=== PATIENT | male | born 1945 | race Caucasian/White ===

== ENCOUNTER 2018-10-25 21:37 | Inpatient (IN) | payer MEDICARE ==
[~2018-10-25] VITALS: Ht 177.8 cm; Wt 112.0 kg
[~2018-10-25 21:37] MED LIST: ALDACTONE25 MG PO; AMARYL1 MG PO; ANTIBIOTIC OTIC; ASPIRIN81 M2 PO; CLARITIN10 MG PO; CRESTOR20 MG PO; EFFIENT10 MG PO; FENOFIBRATE160 MG PO; FISH OIL 1,0001 EAC5 PO; GLUCOPHAGE500 MG PO; LEVEMIR SUBQ; LISINOPRIL10 MG PO; NOHOMEMEDICATIONS; NORCO 5-325 TA1 EACH PO; NOVOLOG MI100 UNIT/2 SUBQ; PLAVIX 75 MG TA75 M1 PO; PREDNISONE 20 M20 MG PO; PROVENTIL HFA6.7 G1 INH; STEROID OTIC; TOPROL XL25 MG PO; ZPAK PO
[2018-10-25 21:38] VITALS: BP 174/79
[2018-10-25 22:07] LABS: ABSOLUTE BASOPHILS 0.1 thou/uL (0.0-0.2); ABSOLUTE EOSINOPHILS 0.1 thou/uL (0.0-0.7); ABSOLUTE LYMPHOCYTES 2.2 thou/uL (0.8-5.3); ABSOLUTE MONOCYTES 0.6 thou/uL (0.0-1.2); ABSOLUTE NEUTROPHILS 2.9 thou/uL (1.6-8.1); BASOPHILS 0.9 %; EOSINOPHILS 1.3 %; HEMATOCRIT 41.2 % (42.0-52.0); HEMOGLOBIN 13.9 gm/dL (14.0-18.0); LYMPHOCYTES 37.4 %; MCH 30.5 pg (26.0-34.0); MCHC 33.8 g/dL (28.0-37.0); MCV 90.4 fL (80.0-100.0); MPV 9.3 fl. (7.2-11.1); NUCLEATED RBCS 0 /100WBC; PLATELET COUNT* 177 thou/uL (150-400); POLYS 49.4 %; RBC 4.56 mil/uL (4.50-6.00); RDW-CV 13.1 % (10.5-14.5); WBC 5.9 thou/uL (4.0-11.0)
[2018-10-25 22:18] LABS: INR 1.1; PROTIME 11.4 Seconds (9.20-11.50)
[2018-10-25 22:25] LABS: LIPASE 511 U/L (73-393); NT-PRO BRAIN NAT PEPTIDE 185 pg/mL (<300); TROPONIN-I LEVEL <0.06 ng/mL (<0.06)
[2018-10-25 23:46] LABS: URINE BILIRUBIN NEGATIVE (Negative); URINE BLOOD TRACE (Negative); URINE CLARITY CLEAR; URINE COLOR YELLOW; URINE GLUCOSE-RANDOM 3+ (Negative); URINE KETONES TRACE (Negative); URINE LEUKOCYTES-REFLEX NEGATIVE (Negative); URINE NITRITE-REFLEX NEGATIVE (Negative); URINE PROTEIN 2+ (Negative); URINE UROBILINOGEN 0.2 E.U./dl (0.2-1.0)
[2018-10-26 00:14] LABS: SQUAMOUS 0-3 Few /LPF (0-3)
[2018-10-26 00:15] LABS: CASTS None Seen /LPF (None Seen); URINE WBC-REFLEX 0-5 Rare /HPF (0-5)
[2018-10-26 00:16] LABS: BACTERIA-REFLEX 1-9 Few /HPF (None Seen); CRYSTALS None Seen /LPF (None Seen); URINE RBC 0-2 Rare /HPF (0-2)
[2018-10-26 02:31] LABS: ALBUMIN 3.2 g/dL (3.4-5.0); CALCIUM 8.3 mg/dL (8.5-10.1); CREATININE 1.2 mg/dL (0.6-1.3); POTASSIUM 4.4 mmol/L (3.5-5.1); TOTAL BILIRUBIN 0.2 mg/dL (<0.1-1.0); TOTAL PROTEIN 6.3 g/dL (6.4-8.2)
[2018-10-26 04:36] VITALS: BP 155/84
[2018-10-26 05:01] VITALS: BP 184/74
--- NOTE | 2018-10-26 06:07 | NUR ---
ADMITTED TO ICU BED 1 AT 0445, SEE ASSESSMENTS. PT WHEEZING, AUDIBLE FROM BEDSIDE. DENIES SOA BUT STATES HE USUALLY USES AN ALBUTEROL INHALER AT HOME FOR WHEEZING AND HAS NEEDED IT DAILY FOR THE LAST 1-2 MONTHS. EXPIRATORY WHEEZES HEAR ON AUSCULTATION. BIGIMENAL PVC'S ON MONITOR. SPECKLED RASH ON DORSAL LEFT FOOT, PT STATES IT HAS BEEN PRESENT X 20 YEARS AND "NO DOCTOR CAN FIGURE IT OUT. THEY HAD ME USE EVERY CREAM OUT THERE, NOTHING HELPED." [facility] PROTOCOL ORDERED, CURRENT SCORE ZERO. ORIENTED TO ROOM/CALL LIGHT WHICH IS WITHIN REACH.
[2018-10-26 06:09] LABS: PROTIME 10.7 Seconds (9.20-11.50)
[2018-10-26 06:10] LABS: PHOSPHORUS* 3.2 mg/dL (2.5-4.9)
[2018-10-26 08:00] VITALS: BP 162/63
--- NOTE | 2018-10-26 08:56 | NUR ---
ASSUMED CARE OF PATIENT. SEE DOCUMENTED ASSESSMENT AND CIWA CHARTING. PATIENT IS TELE STATUS IN THE ICU AND IS A FALL RISK. LESS BIGEMINY PVC'S
--- NOTE | 2018-10-26 10:35 | EKG ---
[place] [address] ELECTROCARDIOGRAM REPORT Name: WILLIAMS LEVINE Room: [address] ADM IN M.R.#: [id number] Admission: 10/26/18 Attend Phys: Nati Trinh MD Discharge: Date of : 45 Report #: [id number] THIS REPORT FOR: //name// [facility] ED Test Date: 2018-10-25 Test Time: 21:53:50 Pat Name: WILLIAMS LEVINE Department: Room: [facility] Gender: M Endoscopy Support Specialist: ELOINA : 1945 Requested By: Radha Tello Order Number: [id number] MD: Brayan Almazan Measurements Intervals [place] Rate: 77 P: 58 VT: 186 QRS: -72 QRSD: 169 T: 64 QT: 436 QTc: 494 Interpretive Statements Sinus rhythm Atrial premature complex Right bundle branch block inferior scar Baseline wander in lead(s) V1 Compared to ECG 01/12/2012 08:17:39 No significant change Electronically Signed On 10-26-2018 10:35:42 CDT by Brayan Almazan [email or web address] <ELECTRONICALLY SIGNED> By: Brayan Almazan MD, [facility] 10/26/18 1035 2153 2153 Brayan Almazan MD, [facility] /EPI
--- NOTE | 2018-10-26 10:48 | NUR ---
1015 DR SCHMIDT TO SEE PATIENT. CARDIOLOGY NOTIFIED OF CONSULT. STILL HAVING SOME PVC'S
[2018-10-26 10:55] LABS: CHOLESTEROL 250 mg/dL (<200); HDL CHOLESTEROL 44 mg/dL (>40); TC:HDL 5.7 Ratio (Not establshd); TRIGLYCERIDE 419 mg/dL (<150); VLDL 84 mg/dL (<40)
[2018-10-26 11:27] LABS: LDL CHOLESTEROL ND mg/dL (<100); SERUM ASSESSMENT Clear
[2018-10-26 12:00] VITALS: BP 171/82
--- NOTE | 2018-10-26 15:59 | NUR ---
PATIENT TO MOVE TO ROOM 213. REPORT CALLED TO SILVESTRE BANG
[2018-10-26 16:00] VITALS: BP 145/68
--- NOTE | 2018-10-26 16:01 | 2DMMODE ---
[place] [address] 2 D/M-MODE ECHOCARDIOGRAM Name: WILLIAMS LEVINE Room: [address] IN [facility]#: [id number] Admission: 10/26/18 Attend Phys: Nati Trinh, Discharge: Date of : 45 Date of Service: 10/26/18 1600 Report #: [id number] THIS REPORT FOR: //name// APPROVED REPORT Study performed: 10/26/2018 14:03:42 EXAM: Comprehensive 2D, Doppler, and color-flow Echocardiogram Patient Location: In-Patient Room #: [facility] Status: routine BSA: 2.26 HR: 69 bpm BP: 171/82 mmHg Rhythm: NSR Other Information Study Quality: Good Indications Arrhythmia 2D Dimensions IVSd: 10.14 (7-11mm) LVOT Diam: 19.71 (18-24mm) LVDd: 58.34 mm PWd: 12.41 (7-11mm) LVDs: 44.61 (25-40mm) Aortic Root: 33.11 mm Volumes Left Atrial Volume (Systole) LA ESV Index: 31.30 mL/m2 Aortic Valve AoV Peak Rony.: 1.87 m/s AO Peak Gr.: 13.99 mmHg LVOT Max P.85 mmHg AO Mean Gr.: 8.38 mmHg LVOT Mean P.19 mmHg LVOT Max V: 0.98 m/s AO V2 VTI: 42.31 cm LVOT Mean V: 0.70 m/s FAB (VTI): 1.54 cm2 LVOT V1 VTI: 21.40 cm AI Sebastian: 3.09 m/s2 AI PHT: 366.70 ms Mitral Valve E/A Ratio: 1.38 [place] [address] 2 D/M-MODE ECHOCARDIOGRAM Name: WILLIAMS LEVINE Room: [address] IN M.R.#: [id number] Admission: 10/26/18 Attend Phys: Nati Trinh, Discharge: Date of : 45 Date of Service: 10/26/18 [facility] Report #: [id number] MV Decel. Time: 192.69 ms MV E Max Rony.: 1.21 m/s MV PHT: 55.88 ms MVA (PHT): 3.94 cm2 TDI E/Lateral E': 12.10 E/Medial E': 12.10 Medial E' Rony.: 0.10 m/s Lateral E' Rony.: 0.10 m/s Pulmonary Valve PV Peak Rony.: 1.23 m/s PV Peak Gr.: 6.10 mmHg Tricuspid Valve RAP Estimate: 5.00 mmHg TR Peak Gr.: 32.72 mmHg RVSP: 37.00 mmHg PA Pressure: 37.00 mmHg Left Ventricle The left ventricle is normal size. There is a question of mild infeobasilar hypokinesis. There is normal left ventricular wall thickness. Left ventricular systolic function is normal. The left ventricular ejection fraction is within the normal range. LVEF is 55-60%. The left ventricular diastolic function is normal. Right Ventricle The right ventricle is normal size. The right ventricular systolic function is normal. Atria The left atrium size is normal. The right atrium size is normal. Aortic Valve Mild aortic valve sclerosis. Trace aortic regurgitation. No hemodynamically significant valvular aortic stenosis. Mitral Valve The mitral valve is normal in structure. Mild mitral regurgitation. No evidence of mitral valve stenosis. Tricuspid Valve The tricuspid valve is normal in structure. Trace tricuspid regurgitation. Mild pulmonary hypertension[place] [address] 2 D/M-MODE ECHOCARDIOGRAM Name: WILLIAMS LEVINE Room: [address] IN [facility]#: [id number] Admission: 10/26/18 Attend Phys: Nati Trinh, Discharge: Date of : 45 Date of Service: 10/26/18 1600 Report #: [id number] The pulmonary valve is normal in structure. There is no pulmonic valvular regurgitation. Great Vessels The aortic root is normal in size. IVC is normal in size and collapses >50% with inspiration. Pericardium There is no pericardial effusion. <Conclusion> The left ventricle is normal size. There is normal left ventricular wall thickness. Left ventricular systolic function is normal. The left ventricular ejection fraction is within the normal range. LVEF is 55-60%. The left ventricular diastolic function is normal. The right ventricle is normal size. The left atrium size is normal. Mild aortic valve sclerosis. Trace aortic regurgitation. No hemodynamically significant valvular aortic stenosis. The mitral valve is normal in structure. Mild mitral regurgitation. The tricuspid valve is normal in structure. IVC is normal in size and collapses >50% with inspiration. There is no pericardial effusion. There is a question of mild infeobasilar hypokinesis. <ELECTRONICALLY SIGNED> By: Brayan Almazan MD, FACC 10/26/181599 99 99 Brayan Almazan MD, FACC /INF
--- NOTE | 2018-10-26 16:33 | NUR ---
TO ROOM 213 PER WHEELCHAIR WITH ALL RECORDS AND BELONGINGS
[2018-10-26 19:30] VITALS: BP 146/54
[2018-10-27] VITALS: BP 136/97
[2018-10-27 02:06] LABS: GLYCOHEMOGLOBIN (HGB A1C) 9.5 % (4.8-5.6)
--- NOTE | 2018-10-27 03:44 | NUR ---
ASSUMED CARE OF PT AT 1900. PT IS ALERT AND ORIENTED. VSS. PERRLA. NO COMPLAINTS OF PAIN. UP WITH STAND BY ASSIST. PT IS IN SINUS RYTHM ON THE TELEMETRY. PT IS RESTING COMFORTABLY IN BED. RESPIRATIONS ARE EVEN AND NONLABORED. WILL CONTINUE TO MONITOR PT.
[2018-10-27 04:00] VITALS: BP 180/78
[2018-10-27 05:40] LABS: ABSOLUTE BASOPHILS 0.1 thou/uL (0.0-0.2); ABSOLUTE EOSINOPHILS 0.1 thou/uL (0.0-0.7); ABSOLUTE LYMPHOCYTES 1.7 thou/uL (0.8-5.3); ABSOLUTE MONOCYTES 0.7 thou/uL (0.0-1.2); ABSOLUTE NEUTROPHILS 3.4 thou/uL (1.6-8.1); BASOPHILS 0.9 %; EOSINOPHILS 1.8 %; HEMATOCRIT 37.3 % (42.0-52.0); HEMOGLOBIN 12.8 gm/dL (14.0-18.0); LYMPHOCYTES 28.5 %; MCH 31.3 pg (26.0-34.0); MCHC 34.3 g/dL (28.0-37.0); MCV 91.1 fL (80.0-100.0); MONOCYTES 11.1 %; MPV 9.4 fl. (7.2-11.1); NUCLEATED RBCS 0 /100WBC; PLATELET COUNT* 155 thou/uL (150-400); POLYS 57.7 %; RDW-CV 13.6 % (10.5-14.5); WBC 5.9 thou/uL (4.0-11.0)
[2018-10-27 05:56] LABS: CALCIUM 8.5 mg/dL (8.5-10.1); CREATININE 1.1 mg/dL (0.6-1.3); POTASSIUM 4.6 mmol/L (3.5-5.1)
[2018-10-27 07:37] VITALS: BP 180/91
--- NOTE | 2018-10-27 10:05 | NUR ---
Pt is A&O. Resides at home alone. Active and independent, continues to work prn. Pt does have a nebulizer, no other DME. No hx of HH or SNF. Supportive family that is involved in POC. Goal is to return home at dc. Anticipate dc to home today post carotid doppler. Following.
--- NOTE | 2018-10-27 10:10 | NUR ---
PT STATES HE WOULD LIKE TO GO HOME. INITIALLY RECEIVED DC ORDERS. RECEIVED RETURN PHONE CALL FROM DR SCHMIDT THAT PT NEEDS TO STAY ONE MORE DAY FOR OBERVATION DUE TO LABS. PT RELAYED INFORMATION. BP ELEVATED 180/91. BP MEDICATIONS ADMININSTERED PER AUG. LISINOPRIL INCREASED PER AND ADMININSTERED PER AUG. WILL CONTINUE TO MONITOR. CIWA 0.
[2018-10-27 11:29] VITALS: BP 181/84
[2018-10-27 15:29] VITALS: BP 137/68
--- NOTE | 2018-10-27 18:47 | NUR ---
SYSTOLIC BP ELEVATED 180'S. PRN HYDRLAZINE ADMININSTERED PER EMAR. SYSTOLIC BP 130'S. FLUIDS DISCONTINUED PER DR SCHMIDT.
[2018-10-27 20:00] VITALS: BP 147/76
[2018-10-28 00:14] VITALS: BP 157/77
--- NOTE | 2018-10-28 02:18 | NUR ---
ASSUMED CARE OF PT AT 1900. PT IS ALERT AND ORIENTED. VSS. PERRLA. BLOOD SUGAR HAS BEEN BELOW 200. PT WAS EDUCATED ON DIET, IMPORTANCE OF MAINTAINING CONSISTANT STABLE BLOOD SUGAR AT HOME. PT VERBALIZES UNDERSTANDING. PT IS IN SINUS RYTHM ON THE TELEMETRY. PT IS RESTING COMFORTABLY IN BED. RESPIRATIONS ARE EVEN AND NONLABORED. WILL CONTINUE TO MONITOR PT.
[2018-10-28 04:25] VITALS: BP 161/81
[2018-10-28 08:00] VITALS: BP 173/68
[2018-10-28 09:37] VITALS: BP 173/68
[2018-10-28] MEDS ORDERED: LISINOPRIL10 MG PO (10:04)
[2018-10-28] MEDS ORDERED: PLAVIX 75 MG TA75 M1 PO (10:04)
[2018-10-28] MEDS ORDERED: METFORMIN HCL500 MG PO (10:06)
[2018-10-28] MEDS ORDERED: LOPRESSOR25 PO (10:07)
[2018-10-28] MEDS ORDERED: PROTONIX40 M2 PO (10:09)
[2018-10-28] MEDS ORDERED: VITAMIN B-1100 M1 PO (10:11)
[2018-10-28] MEDS ORDERED: PRENATAL MULTI1 EAC6 PO (10:11)
[2018-10-28] MEDS ORDERED: LIPITOR 20 MG T20 M1 PO (10:12)
[2018-10-28] MEDS ORDERED: UNICOMPLEX M TA1 TA1 PO (10:20)
[2018-10-28] MEDS ORDERED: FOLIC ACID1 MG PO (10:21)
--- NOTE | 2018-10-28 10:53 | NUR ---
PT ASSESSMENT CHARTED. VSS BEFORE DISCHARGE. INSTRUCTIONS FOR DISCHARGE GONE OVER WITH PATIENT AND HE DECLINED ANY QUESTIONS. FOLLOW UP SCHEDULED WITH CARDIOLOGY. SEVERAL SCRIPTS SENT WITH PATIENT. NO OTHER ISSUES DURING THE SHIFT. LEFT FLOOR WITH NURSING STAFF AT 1050 FOR DISCHARGE.
== END 2018-10-28 11:11 | disposition home or self-care (01) | DRG 92 ==
LOC: M.ERS 21:37 → M.TBA-ER 10-26 03:47 → M.ICU 10-26 03:47 → M.2W 10-26 16:38
PROVIDERS: Emergency Medicine; Internal Medicine; ADMIT Internal Medicine
DX: G92 Toxic encephalopathy (principal); E44.1 Mild protein-calorie malnutrition; F10.129 Alcohol abuse with intoxication, unspecified; I25.5 Ischemic cardiomyopathy; I25.10 Atherosclerotic heart disease of native coronary artery without angina pectoris; E86.0 Dehydration; I49.3 Ventricular premature depolarization; J44.9 Chronic obstructive pulmonary disease, unspecified; E11.65 Type 2 diabetes mellitus with hyperglycemia; J45.909 Unspecified asthma, uncomplicated; W18.30XA Fall on same level, unspecified, initial encounter; Y93.89 Activity, other specified; Y92.89 Other specified places as the place of occurrence of the external cause; Y99.8 Other external cause status; Z79.899 Other long term (current) drug therapy; Z68.35 Body mass index [BMI] 35.0-35.9, adult; Z91.14 Patient's other noncompliance with medication regimen

== ENCOUNTER 2020-01-14 14:46 | Inpatient (IN) | payer MEDICARE ==
[2020-01-14] VITALS (20 sets, daily range): BP systolic 116–204; BP diastolic 63–90
[~2020-01-14] VITALS: Ht 172.7 cm; Wt 106.6 kg
[~2020-01-14 14:46] MED LIST changes: +FOLIC ACID1 MG PO; +LIPITOR 20 MG T20 M1 PO; +LOPRESSOR25 PO; +METFORMIN HCL500 MG PO; +PRENATAL MULTI1 EAC6 PO; +PROTONIX40 M2 PO; +UNICOMPLEX M TA1 TA1 PO; +VITAMIN B-1100 M1 PO
[2020-01-14 15:09] LABS: ABSOLUTE BASOPHILS 0.1 thou/uL (0.0-0.2); ABSOLUTE EOSINOPHILS 0.1 thou/uL (0.0-0.7); ABSOLUTE LYMPHOCYTES 2.4 thou/uL (0.8-5.3); ABSOLUTE MONOCYTES 0.8 thou/uL (0.0-1.2); ABSOLUTE NEUTROPHILS 5.7 thou/uL (1.6-8.1); EOSINOPHILS 0.8 %; HEMOGLOBIN 14.1 gm/dL (14.0-18.0); LYMPHOCYTES 26.9 %; MCH 31.9 pg (26.0-34.0); MCHC 35.4 g/dL (28.0-37.0); MCV 90.3 fL (80.0-100.0); MONOCYTES 8.3 %; MPV 9.8 fl. (7.2-11.1); NUCLEATED RBCS 0 /100WBC; PLATELET COUNT* 226 thou/uL (150-400); RBC 4.43 mil/uL (4.50-6.00); RDW-CV 13.6 % (10.5-14.5)
[2020-01-14 15:20] LABS: CALCIUM 8.9 mg/dL (8.5-10.1); CREATININE 1.3 mg/dL (0.6-1.3); POTASSIUM 4.3 mmol/L (3.5-5.1)
[2020-01-14 15:21] LABS: APTT 24.7 Seconds (25.0-31.3); INR 1.1; PROTIME 11.3 Seconds (9.20-11.50)
[2020-01-14 15:30] LABS: ALBUMIN 3.8 g/dL (3.4-5.0); MAGNESIUM 1.7 mg/dL (1.8-2.4); TOTAL BILIRUBIN 0.7 mg/dL (<0.1-1.0); TOTAL PROTEIN 7.5 g/dL (6.4-8.2)
--- NOTE | 2020-01-14 16:26 | NUR ---
SEE STEMI FLOW SHEET FOR ADDITIONAL INFORMATION.
--- NOTE | 2020-01-14 19:00 | NUR ---
RECEIVED REPORT FROM DAY RN AND ASSUMED CARE
--- NOTE | 2020-01-14 19:56 | NUR ---
I ASSUMED THE PATIENT AN ADMISSION FROM THE TRACK LAYER AT 1700. HE HAS REMAINED FLAT THE ENTIRE TIME. ZOFRAN WAS GIVEN FOR NAUSEA. HE HAS USED THE URINAL 3 TIMES EQUALLING 900 CC IN OUTPUT. RASH ON LEFT FOOT IS CHRONIC AND PATIENT CLAIMS HAS BEEN THERE FOR 25 PLUS YEARS. HE IS ON THE TECHNICAL SYSTEM ANALYST. BLOOD SUGAR IS ALSO MONITORED. RIGHT FEMORAL ANGIOSEAL IS C/D/I. ANGIOMAX IS STILL GOING UNTIL 2100 AT 25ML/HR. VITALS ARE STABLE. CARDIOLOGY WAS CONSULTED FOR CLARIFICATION OF ORDERS SINCE IT APPEARS NO ONE CHARTED ON A HEPARIN DRIP. DR JETT DID NOT ORDER THE DRIP AND SAYS TO ONLY HAVE THE ANGIOMAX GOING. NEW ORDERS WERE OBTAINED TO HAVE A CHEST XRAY IN THE AM. WILL CONTINUE TO MONITOR.
[2020-01-15] VITALS (31 sets, daily range): BP systolic 114–188; BP diastolic 29–92
[2020-01-15 04:49] LABS: HEMATOCRIT 38.1 % (42.0-52.0); HEMOGLOBIN 13.5 gm/dL (14.0-18.0); MCHC 35.3 g/dL (28.0-37.0); MCV 90.5 fL (80.0-100.0); MPV 9.1 fl. (7.2-11.1); RBC 4.21 mil/uL (4.50-6.00); RDW-CV 13.5 % (10.5-14.5); WBC 6.3 thou/uL (4.0-11.0)
[2020-01-15 05:08] LABS: ALKALINE PHOSPHATASE 100 U/L (46-116); ANION GAP 6 mmol/L (7-16); BUN 18 mg/dL (7-18); CALCIUM 8.4 mg/dL (8.5-10.1); CHLORIDE 104 mmol/L (98-107); CHOLESTEROL 228 mg/dL (<200); CO2 29 mmol/L (21-32); CREATININE 1.3 mg/dL (0.6-1.3); GLUCOSE 200 mg/dL (70-99); HDL CHOLESTEROL 43 mg/dL (>40); LDL CHOLESTEROL 131 mg/dL (<100); POTASSIUM 3.8 mmol/L (3.5-5.1); SGOT 55 U/L (15-37); SGPT 22 U/L (30-65); SODIUM 139 mmol/L (136-145); TC:HDL 5.3 Ratio (Not establshd); TOTAL BILIRUBIN 0.7 mg/dL (<0.1-1.0); TRIGLYCERIDE 271 mg/dL (<150); VLDL 54 mg/dL (<40)
[2020-01-15 05:16] LABS: SERUM ASSESSMENT CLEAR
--- NOTE | 2020-01-15 11:00 | CARD ---
[address] [address] CARDIAC CATH REPORT Name: WILLIAMS LEVINE Room: [address] IN .R.#: [id number] Admission: 01/14/20 Attend Phys: Travon Westbrook MD Discharge: Date of : 45 Report #: [id number] THIS REPORT FOR: //name// cc: COURTNEY Waldron No family physician/PCP COURTNEY - No family physician/PCP ~ APPROVED REPORT Study performed: 01/14/2020 15:07:04 Patient Details Patient Status: ED Room #: The patient is a 74 year-old male Event Personnel Dennis Casas RN RN, Lelo Zhang Kucera, Brad RCIS Scrub, Holkins, John Assembly Line Machine Operator Procedures Performed Art Access - R femoral artery* Left Heart Cath w/or w/o Coronaries [id number] [facility] [address] w/wo Plasty Single CIRC [id number] Indication STEMI Risk Factors Obesity, Hypercholesterolemia, Hypertension, Diabetes Previous Procedures/Diagnoses Previous PCI, Previous ND Admission/Lab Medications/Medications given during procedure Angiomax bolus and infusion Procedure Narrative The patient was brought emergently to the Cardiac Catheterization Laboratory and was prepped and draped in a sterile manner. The right femoral was infiltrated with 2% Lidocaine subcutaneous anesthesia. A [place] 6 FR sheath was inserted into the right femoral artery. Coronary angiography was performed using coronary diagnostic catheters. The right coronary system was accessed and visualized with a Diagnostic catheter. The left coronary system was accessed and visualized with a Diagnostic catheter. The left ventricle was accessed and visualized with a Diagnostic catheter. Left ventricular/Aortic Valve gradient assessed [place] [address] CARDIAC CATH REPORT Name: WILLIAMS LEVINE Room: [address]#: [id number] Admission: 01/14/20 Attend Phys: Travon Westbrook MD Discharge: Date of : 45 Report #: [id number] Pre-demployment femoral angiogram was performed . Closure device was deployed with a Fr Angioseal STS 6Fr. The patient tolerated the procedure well and there were no complications associated with the procedure. There was no hematoma. Intraoperative Conscious Sedation Sedation start time: 1552 Case end Time: 1647 Versed 1 mg Contrast Type and Amount: Visipaque 310 ml Coronary Angiography The patient's coronary anatomy is right dominant. Diagnostic Cath Left Main 0% narrowing LAD 75% eccentric proximal LAD stenosis with 75% tubular first diagonal narrowing Circumflex 100% mid vessel occlusion with prominent intraluminal thrombus; there was 80% tubular narrowing in the proximal first marginal branch; there was 90% distal circumflex stenosis Right Coronary 100% proximal occlusion with [id number] collaterals filling the distal right coronary artery Left Ventriculography Left Ventriculography was not performed. Hemodynamics The aortic pressure is 161/64 mmHg with a mean of 104 mmHg. The left ventricular pressure is 156/3 mmHg with a mean of mmHg. The left ventricular end diastolic pressure is 31 mmHg. There was no gradient across the aortic valve upon pullback. PCI Technique Lesion Anticoagulation was achieved with Angiomax. Percutaneous coronary intervention was performed on the mid circumflex artery segment. The lesion stenosis prior to intervention was 100% with STEFAN 0 flow. A 6FR XB 3.5 100CM Guide Catheter was used to engage the ostium. A IG: BMW 190cm Interventional Guidewire was used to cross the lesion. BALLOON DILATION A Balloon catheter Euphora SC 2.0x10mm was inserted and inflated up to 14.00atm for 12seconds. Additional Inflation: 14.00atm for 8seconds. Additional Inflation: 14.00atm [place] 7seconds. [place] [address] CARDIAC CATH REPORT Name: WILLIAMS LEVINE Room: [address]#: [id number] Admission: 01/14/20 Attend Phys: Travon Westbrook MD Discharge: Date of : 45 Report #: [id number] balloon catheter [employer] Trek RX 2.5 x 15 was inserted and inflated up to 14 gracie for 11 sec. Additional inflation: 14 gracie for 8 seconds. STENT DEPLOYMENT A drug-eluting stent Jesús RX Stent 2.5X22mm was inserted and inflated up to 14.00atm for 12seconds. Additional Inflation: 18.00atm for 10seconds. Additional Inflation: 20.00atm for 7seconds. POST STENT DEPLOYMENT BALLOON DILATION A Balloon catheter NC Euphora 2.75x8 was inserted and inflated up to 15.00atm for 13seconds. Additional Inflation: 16.00atm for 9seconds. Additional Inflation: 17.00atm for 8seconds. Final angiography reveals 10 % stenosis with STEFAN 3 flow. PCI Technique Lesion 2 Percutaneous Coronary Intervention was performed on the distal circumflex artery segment. The lesion stenosis prior to intervention was 90% with STEFAN 0 flow. Stent Deployment A drug-eluting stent Jesús RX Stent 2.0X12mm was inserted and inflated up to 12.00atm for 12seconds. Additional Inflation: 14.00atm for 8seconds. Final angiography reveals 0 % stenosis with STEFAN [address] Conclusion 1[address] Acute ST segment elevation inferoposterior myocardial infarction 2. Severe coronary artery disease characterized by the following: A 100% mid circumflex occlusion with prominent intraluminal thrombus; there was 90% distal circumflex narrowing; there was 80% tubular narrowing in the proximal portion of the first marginal branch B 75% eccentric proximal LAD stenosis with 75% tubular first diagonal narrowing C total occlusion of the dominant right coronary artery proximally with [id number] collaterals filling the distal [place] [address] CARDIAC CATH REPORT Name: WILLIAMS LEVINE Room: [address] IN [facility]#: [id number] Admission: 01/14/20 Attend Phys: Travon Westbrook MD Discharge: Date of : 45 Report #: [id number] 3. Significant elevation of left ventricular end-diastolic pressure at rest 4. Successful PCI with deployment of sequential drug-eluting stents at the sites of 100% mid and 90% distal circumflex stenosis with 10% and 0% residual narrowings STEFAN-3 flow to the distal vessel and no residual thrombus Recommendations Cardiac Rehabilitation Referral Cardiac Risk Reduction Program Aggressive Medical Therapy Medications Administered Aspirin (any) Prasugrel Diagnostic Cath Approved by: Brayan Almazan MD Date/Time: 01/15/2020 10:56:50 <ELECTRONICALLY SIGNED> By: Brayan Almazan MD, [facility] 01/15/20 1059 1059 1059Brayan Almazan MD, FAC /INF
--- NOTE | 2020-01-15 11:09 | EKG ---
[place] [address] ELECTROCARDIOGRAM REPORT Name: WILLIAMS LEVINE Room: [address] ADM IN M.R.#: [id number] Admission: 01/14/20 Attend Phys: Travon Westbrook, Discharge: Date of : 45 Date of Service: 01/14/20 1451 Report #: [id number] THIS REPORT FOR: //name// [facility] ED Test Date: 2020-01-14 Test Time: 14:51:10 Pat Name: WILLIAMS LEVINE Department: Room: [facility] Gender: M Shipping And Receiving Specialist: CARLIE : 1945 Requested By: Júnior Burch Order Number: [id number] MD: Brayan Almazan Measurements Intervals [place] Rate: 72 P: 65 [place]: 186 QRS: -58 QRSD: 149 T: 88 QT: 408 QTc: 447 Interpretive Statements Sinus rhythm Atrial premature complexes Right bundle branch block Inferior infarct, acute with probable posterior involvement Compared to ECG 10/25/2018 21:53:50 Myocardial infarct finding now present Electronically Signed On 01-15-2020 11:09:07 CDT by Brayan Almazan [email or web address] <ELECTRONICALLY SIGNED> By: Brayan Almazan MD, [facility] 01/15/20 1109 1451 1451 Brayan Almazan MD, [facility] /EPI
--- NOTE | 2020-01-15 11:11 | EKG ---
[place] [address] ELECTROCARDIOGRAM REPORT Name: WILLIAMS LEVINE Room: [address] ADM IN M.R.#: [id number] Admission: 01/14/20 Attend Phys: Travon Westbrook, Discharge: Date of : 45 Date of Service: 01/14/20 1500 Report #: [id number] THIS REPORT FOR: //name// [facility] ED Test Date: 2020-01-14 Test Time: 15:00:36 Pat Name: WILLIAMS LEVINE Department: Room: [facility] Gender: M Lockstitch Lining Setter: CARLIE : 1945 Requested By: Júnior Burch Order Number: [id number] MD: Brayan Almazan Measurements Intervals [place] Rate: 69 P: 82 NE: 170 QRS: -68 QRSD: 166 T: 98 QT: 419 QTc: 449 Interpretive Statements Sinus rhythm Atrial premature complexes Right bundle branch block Compared to ECG 01/14/2020 14:51:[address]-T changes suggesting ischemia or injury persist Electronically Signed On 01-15-2020 11:10:56 CDT by Brayan Almazan [email or web address] <ELECTRONICALLY SIGNED> By: Brayan Almazan MD, [facility] 01/15/20 1110 1500 1500 Brayan Almazan MD, [facility] /EPI
--- NOTE | 2020-01-15 11:18 | EKG ---
[place] [address] ELECTROCARDIOGRAM REPORT Name: WILLIAMS LEVINE Room: [address] ADM IN M.R.#: [id number] Admission: 01/14/20 Attend Phys: Travon Westbrook, Discharge: Date of : 45 Date of Service: 01/15/20 1034 Report #: [id number] THIS REPORT FOR: //name// [facility] Test Date: 2020-01-15 Test Time: 10:34:37 Pat Name: WILLIAMS LEVINE Department: Room: [facility] Gender: M Geropsychologist: : 1945 Requested By: Brayan Almazan Order Number: [id number] Emeka MD: Brayan Almazan Measurements Intervals [place] Rate: 63 P: 70 ID: 181 QRS: -68 QRSD: 163 T: -47 QT: 459 QTc: 470 Interpretive Statements Sinus rhythm Involved inferior wall myocardial infarction with posterior involvement suggested Atrial premature complex Right bundle branch block Compared to ECG 01/14/2020 15:00:36 There has been evolution of the inferoposterior infarction Electronically Signed On 01-15-2020 11:18:01 CDT by Brayan Almazan [email or web address] <ELECTRONICALLY SIGNED> By: Brayan Almazan MD, [facility] 01/15/20 1118 1034 1034 Brayan Almazan MD, FAC /EPI
--- NOTE | 2020-01-15 12:25 | CON ---
[address] [address] CONSULTATION Name: LEVINEWILLIAMS Room: [address] IN M.R.#: [id number] Admission: 01/14/20 Attend Phys: Tarvon Westbrook MD Discharge: Date of : 45 Report #: [id number] THIS REPORT FOR: //name// cc: COURTNEY Walker family physician/PCP COURTNEY Walker family physician/PCP ~ THIS REPORT FOR: //name// CC: Travon Westbrook FAM physician/PCP Brayan Almazan CARDIOLOGY CONSULTATION The patient going to ICU 5 on 01/14/2020. HISTORY OF PRESENT ILLNESS: The patient is a pleasant 74-year-old male with a history of diabetes and a questionable history of hypertension. For the past 24 hours, he has noted waxing and waning chest discomfort with associated nausea. This kept him up much of the night and was severe enough that he finally sought assistance in the [facility] Emergency Room earlier this afternoon. He had persistent pain with inferior ST segment elevation, right precordial ST segment depression suggesting inferoposterior ST-segment elevation myocardial infarction. The patient received aspirin, heparin and beta-blockade in the ER prior to the procedure. He continued to experience chest discomfort. PAST MEDICAL HISTORY: Remarkable for diabetes, which has gone untreated and labile hypertension, which has also gone untreated. SOCIAL HISTORY: He denies significant tobacco or ethanol use. PHYSICAL EXAMINATION: GENERAL: Reveals a distressed, overweight male. VITAL SIGNS: Blood pressure is 160/80, pulse rate is 74, respirations are 18 per minute. NECK: Jugular venous pressure is normal. CHEST: Clear. CARDIAC: Reveals normal first and second heart sounds with an S4 gallop. ABDOMEN: Mildly obese. EXTREMITIES: Without edema with intact femoral, pedal and radial pulses. DIAGNOSTIC DATA: EKG reveals subtle inferior ST segment elevation with right precordial ST segment depression suggesting [place] [address] CONSULTATION Name: WILLIAMS LEVINE Room: [address]#: [id number] Admission: 01/14/20 Attend Phys: Travon Westbrook MD Discharge: Date of : 45 Report #: [id number] Cardiac catheterization was undertaken. This revealed a total occlusion of the mid circumflex with 90% distal circumflex stenosis noted after recanalization of the circumflex. There was an 80% tubular first marginal narrowing. There was 75% proximal LAD narrowing with 80% tubular first diagonal narrowing. The right coronary artery was totally occluded proximally with left to right collaterals filling the distal right coronary artery. Given this data, I performed percutaneous coronary intervention, deploying sequential drug-eluting stents in the mid and distal circumflex with 10 and 0% residual narrowing and STEFAN 3 flow of the distal vessel. IMPRESSION: 1. Acute ST segment elevation inferoposterior myocardial infarction. 2. Multivessel coronary artery disease. 3. Diabetes. 4. Hypertension. 5. Moderate exogenous obesity. RECOMMENDATIONS: 1. The patient underwent acute intervention to the circumflex in the context of the findings noted above. 2. He will require stage intervention to the LAD with consideration diagonal, first marginal. 3. Attention to diabetes, which has been appreciated, but not treated. 4. Attention to systemic pressure. 5. Institution of therapy with beta blockade and statin for it. Critical care time is 40 minutes from 1635 to 1715. <ELECTRONICALLY SIGNED> By: Brayan Almazan MD, FACC 01/15/20 1225 1718 1823Brayan Almazan MD, FAC /nt
--- NOTE | 2020-01-15 13:49 | 2DMMODE ---
[place] [address] 2 D/M-MODE ECHOCARDIOGRAM Name: WILLIAMS LEVINE Room: [address] IN .R.#: [id number] Admission: 01/14/20 Attend Phys: Travon Westbrook, Discharge: Date of : 45 Date of Service: 01/15/20 1349 Report #: [id number] THIS REPORT FOR: cc: FAM - No family physician/PCP FAM - No family physician/PCP Brayan Almazan MD [facility] ~ APPROVED REPORT Study performed: 01/15/2020 09:45:35 EXAM: Comprehensive 2D, Doppler, and color-flow Echocardiogram Patient Location: In-Patient Room #: [facility] Status: routine BSA: 2.19 HR: 66 bpm BP: 145/92 mmHg Rhythm: NSR Other Information Study Quality: Good Indications Acute RI 2D Dimensions IVSd: 11.03 (7-11mm) LVOT Diam: 20.34 (18-24mm) LVDd: 54.52 mm PWd: 11.64 (7-11mm) LVDs: 28.19 (25-40mm) Aortic Root: 32.86 mm Volumes Left Atrial Volume (Systole) LA ESV Index: 24.60 mL/m2 Aortic Valve AoV Peak Rony.: 1.87 m/s AO Peak Gr.: 13.96 mmHg LVOT Max P.07 mmHg AO Mean Gr.: 7.69 mmHg LVOT Mean P.81 mmHg LVOT Max V: 1.01 m/s AO V2 VTI: 39.35 cm LVOT Mean V: 0.61 m/s FAB (VTI): 1.73 cm2 LVOT V1 VTI: 20[place]97 [place] [address] 2 D/M-MODE ECHOCARDIOGRAM Name: WILLIAMS LEVINE Room: [address] IN ..#: [id number] Admission: 01/14/20 Attend Phys: Travon Westbrook, Discharge: Date of : 45 Date of Service: 01/15/20 1349 Report #: [id number] Mitral Valve E/A Ratio: 1.41 MV Decel. Time: 250.56 ms MV E Max Rony.: 1.08 m/s MV PHT: 72.66 ms MVA (PHT): 3.03 cm2 TDI E/Medial E': 13.50 Medial E' Rony.: 0.08 m/s Pulmonary Valve PV Peak Rony.: 1.12 m/s PV Peak Gr.: 5.06 mmHg Left Ventricle The left ventricle is normal size. There is mild inferobasilar hypokinesis. There is normal left ventricular wall thickness. Left ventricular systolic function is normal. The left ventricular ejection fraction is within the normal range. LVEF is 55-60%. Grade IV - fixed restrictive diastolic dysfunction. Right Ventricle The right ventricle is normal size. The right ventricular systolic function is normal. Atria The left atrium size is normal. The right atrium size is normal. Aortic Valve Mild aortic valve sclerosis. Trace aortic regurgitation. No hemodynamically significant valvular aortic stenosis. Mitral Valve There is mitral annular calcification. Mild mitral regurgitation. No evidence of mitral valve stenosis. Tricuspid Valve The tricuspid valve is normal in structure. Trace tricuspid regurgitation. Unable to assess PA pressure. Pulmonic Valve The pulmonary valve is normal in structure. There is no pulmonic valvular regurgitation[place] [address] 2 D/M-MODE ECHOCARDIOGRAM Name: WILLIAMS LEVINE Room: [address] IN ..#: [id number] Admission: 01/14/20 Attend Phys: Travon Westbrook, Discharge: Date of : 45 Date of Service: 01/15/20 1349 Report #: [id number] The aortic root is normal in size. IVC is normal in size and collapses >50% with inspiration. Pericardium There is no pericardial effusion. <Conclusion> The left ventricle is normal size. Left ventricular systolic function is normal. The left ventricular ejection fraction is within the normal range. LVEF is 55-60%. Grade IV - fixed restrictive diastolic dysfunction. The right ventricle is normal size. The left atrium size is normal. Mild aortic valve sclerosis. Trace aortic regurgitation. No hemodynamically significant valvular aortic stenosis. There is mitral annular calcification. Mild mitral regurgitation. No evidence of mitral valve stenosis. The tricuspid valve is normal in structure. IVC is normal in size and collapses >50% with inspiration. There is no pericardial effusion. There is mild inferobasilar hypokinesis. <ELECTRONICALLY SIGNED> By: Brayan Almazan MD, FACC 01/15/20 1349 1349 1349 Brayan Almazan MD, FACC /INF
--- NOTE | 2020-01-15 15:14 | NUR ---
ICU rounds: Admitted with Stemi, stent placed yesterday. Tele status. Plan dc home tomorrow. Pt resides at home alone. Independent. Supportive family. Pt has a neb. No hx of HH or SNF. Following for dc needs.
--- NOTE | 2020-01-15 16:54 | NUR ---
PT IS A/OX4,VSS,AND DOWNGRADED TO TELE STATUS.NO C/O PAIN.RIGHT GROIN SITE CLEAN,DRY, AND INTACT.ECHO COMPLETED.PT WORKED WITH CARDIAC REHAB NURSE AT BEDSIDE.PT SAT UP IN CHAIR THROUGHOUT DAY.PT IS ANXIOUS TO GO HOME IN THE A.CALL LIGHT AND FALL PRECAUTIONS IN PLACE.WILL CONTINUE TO MONITOR FOR DURATION OF SHIFT.
[2020-01-16 02:06] LABS: GLYCOHEMOGLOBIN (HGB A1C) 9.8 % (4.8-5.6)
[2020-01-16 03:27] VITALS: BP 115/56
--- NOTE | 2020-01-16 05:34 | NUR ---
PT. PROGRESSING TOWARDS GOALS. ANXIOUS TO GO HOME SOON POSSIBLE THIS MORNING. GROIN SITE C/D/I. NO COMPLAINTS OF PAIN THIS SHIFT. VITAL SIGNS WITHIN NORMAL LIMITS. REMAINS ON ROOM AIR. SLEPT WELL THIS EVENING. CALL LIGHT WITHIN REACH, WILL CONTINUE TO MONITOR.
[2020-01-16 06:03] LABS: ABSOLUTE EOSINOPHILS 0.1 thou/uL (0.0-0.7); ABSOLUTE LYMPHOCYTES 1.4 thou/uL (0.8-5.3); ABSOLUTE MONOCYTES 0.8 thou/uL (0.0-1.2); ABSOLUTE NEUTROPHILS 4.1 thou/uL (1.6-8.1); BASOPHILS 0.5 %; EOSINOPHILS 2.2 %; HEMATOCRIT 39.3 % (42.0-52.0); HEMOGLOBIN 13.6 gm/dL (14.0-18.0); LYMPHOCYTES 20.9 %; MCH 31.4 pg (26.0-34.0); MCHC 34.5 g/dL (28.0-37.0); MCV 91.1 fL (80.0-100.0); MONOCYTES 12.6 %; MPV 9.5 fl. (7.2-11.1); NUCLEATED RBCS 0 /100WBC; PLATELET COUNT* 182 thou/uL (150-400); POLYS 63.8 %; RBC 4.31 mil/uL (4.50-6.00); RDW-CV 13.4 % (10.5-14.5); WBC 6.5 thou/uL (4.0-11.0)
[2020-01-16 06:15] LABS: CALCIUM 8.8 mg/dL (8.5-10.1); CREATININE 1.2 mg/dL (0.6-1.3); POTASSIUM 3.9 mmol/L (3.5-5.1)
[2020-01-16 07:54] VITALS: BP 103/61
[2020-01-16] MEDS ORDERED: HUMALOG100 UNIT/1 SUBQ (07:57)
[2020-01-16 08:39] VITALS: BP 104/68
[2020-01-16 08:42] VITALS: BP 104/68
--- NOTE | 2020-01-16 09:01 | NUR ---
Pt discharging to home today, Pt declined HH, dtr in room and plans to stay with Pt for a while and assist with cares as needed. Updated nurse.
[2020-01-16] MEDS ORDERED: EFFIENT10 MG PO (09:50)
[2020-01-16] MEDS ORDERED: TOPROL XL25 MG PO (09:51)
[2020-01-16] MEDS ORDERED: NITROGLYCERIN0.4 MG SUBLING (09:52)
[2020-01-16] MEDS ORDERED: LISINOPRIL2.5 MG PO (09:53)
[2020-01-16] MEDS ORDERED: ROSUVASTATIN CA20 MG PO (09:53)
--- NOTE | 2020-01-16 10:15 | NUR ---
PT OK FOR DISCHARGE.PAPERWORK COMPLETED AND GIVEN TO PT.SCRIPTS GIVEN WITH EDUCATION.IV REMOVED X2.ALL PERSONAL BELONGINGS PACKED AND TAKEN WITH PT.PT EDUCATED ON POST CATH GROIN SITE.PT WHEELED OUT BY NURSING STAFF TO PERSONAL VEHICLE WITH DAUGHTER.
--- NOTE | 2020-01-16 10:38 | NUR ---
RE: heart failure medication education The patient was provided a medication information sheet that explained what heart failure is and what his two medications - metoprolol and lisinpril - do and what side effects to expect. His questions were answered. If any further questions arise, pharmacy is available to answer them. Thank you. Betsy Rudolph, Customer Supply Coordinator I agree with above, Caty Mota Pharm. D.
--- NOTE | 2020-01-17 10:53 | D ---
[address] [address] DISCHARGE SUMMARY Name: WILLIAMS LEVINE Room: [address] IN M.R.#: [id number] Admission: 01/14/20 Attend Phys: Travon Westbrook MD Discharge: 01/16/20 Date of : 45 Report #: [id number] THIS REPORT FOR: //name// cc: COURTNEY Walker family physician/PCP COURTNEY Walker family physician/PCP ~ THIS REPORT FOR: //name// CC: Travon Westbrook [facility] physician/PCP Brayan Almazan DATE OF SERVICE: 01/16/2020 FOLLOWUP AND DISCHARGE NOTE FINAL DISCHARGE DIAGNOSES: 1. Acute inferoposterior myocardial infarction. 2. Coronary artery disease. 3. Status post percutaneous coronary intervention. 4. Hypertension. 5. Diabetes. 6. Hyperlipidemia. PROCEDURES: 01/14/2020 - left heart catheterization, selective coronary arteriography and percutaneous coronary intervention of the totally occluded circumflex with 2 drug-eluting stents deployed. HISTORY OF PRESENT ILLNESS: The patient is a very pleasant 74-year-old male with a history of remote PCI of the circumflex. He presented with persistent chest pain on Wednesday01/14/2020. Catheterization revealed total occlusion of the mid circumflex with 90% distal narrowing after recanalization of the mid LAD. He also has 75% eccentric proximal LAD narrowing, 75% tubular first diagonal narrowing and 80% tubular first marginal narrowing. The right coronary artery was occluded with left to right collaterals filling the distal right coronary artery. The patient underwent the aforementioned intervention. In the context of reperfusion, troponin chrissy to a peak value of 15.9. Echocardiogram demonstrated normal global LV function, estimated ejection fraction of 55-60% with mild inferobasilar hypokinesis. He ambulated without difficulty and there was good hemostasis at the right femoral site of catheterization. The patient was discharged home on dual antiplatelet therapy including aspirin 81 mg daily, Effient 10 mg daily, beta blockade in the form of Toprol-[place] 25 [place] [address] DISCHARGE SUMMARY Name: WILLIAMS LEVINE Room: [address]#: [id number] Admission: 01/14/20 Attend Phys: Travon Westbrook MD Discharge: 01/16/20 Date of : 45 Report #: [id number] daily, lisinopril 5 mg daily, and atorvastatin 40 mg daily. We will plan to have him see our nurse practitioner in 7-10 days and I will plan recatheterization with stage intervention to the LAD, first marginal and consideration first diagonal on 02/05/2020. <ELECTRONICALLY SIGNED> By: Brayan Almazan MD, [facility] 01/17/20 1053 0918 [id number] Almazan MD, FACC /nt
== END 2020-01-16 10:15 | disposition home or self-care (01) | DRG 246 ==
LOC: M.ERS 14:46 → M.TBA-CV 15:25 → M.ICU 15:25
PROVIDERS: Emergency Medicine Emergency Medical Services; Internal Medicine; ADMIT Internal Medicine; ATTEND Internal Medicine
PROC: 027035Z Dilation of Coronary Artery, One Artery with Two Drug-eluting Intraluminal Devices, Percutaneous Approach (ICD-10-PCS; principal; 2020-01-14)
PROC: 4A023N7 Measurement of Cardiac Sampling and Pressure, Left Heart, Percutaneous Approach (ICD-10-PCS; principal; 2020-01-14)
PROC: B211YZZ Fluoroscopy of Multiple Coronary Arteries using Other Contrast (ICD-10-PCS; principal; 2020-01-14)
DX: I21.11 ST elevation (STEMI) myocardial infarction involving right coronary artery (principal); I50.31 Acute diastolic (congestive) heart failure; I25.10 Atherosclerotic heart disease of native coronary artery without angina pectoris; E11.65 Type 2 diabetes mellitus with hyperglycemia; E66.9 Obesity, unspecified; J44.9 Chronic obstructive pulmonary disease, unspecified; E78.5 Hyperlipidemia, unspecified; I11.0 Hypertensive heart disease with heart failure; Z68.35 Body mass index [BMI] 35.0-35.9, adult; Z91.011 Allergy to milk products; Z72.89 Other problems related to lifestyle; Z87.891 Personal history of nicotine dependence; Z91.14 Patient's other noncompliance with medication regimen

== ENCOUNTER 2020-02-05 08:51 | Observation (INO) | payer MEDICARE ==
[2020-02-05] VITALS (8 sets, daily range): BP systolic 150–174; BP diastolic 60–72
[~2020-02-05] VITALS: Ht 172.7 cm; Wt 104.3 kg
--- NOTE | ~2020-02-05 | H ---
[address] [address] HISTORY AND PHYSICAL Name: WILLIAMS LEVINE Room: [address] Fiordaliza Gaines#: [id number] Admission: 02/05/20 Attend Phys: Brayan Almazan MD, Discharge: 02/06/20 Date of : 45 Report #: [id number] THIS REPORT FOR: //name// cc: FAM - No family physician/PCP FAM - No family physician/PCP ~ Please refer to the History and Physical performed in the physician's office. By: [id number] Records Staff [facility] /OANH
[~2020-02-05 08:51] MED LIST changes: +ASA81BEC PO; +HUMALOG100 UNIT/1 SUBQ; +LISINOPRIL2.5 MG PO; +NITROGLYCERIN0.4 MG SUBLING; +ROSUVASTATIN CA20 MG PO
[2020-02-05 10:09] LABS: HEMOGLOBIN 14.1 gm/dL (14.0-18.0); MCH 31.4 pg (26.0-34.0); MCHC 34.4 g/dL (28.0-37.0); MCV 91.1 fL (80.0-100.0); MPV 9.4 fl. (7.2-11.1); RBC 4.5 mil/uL (4.50-6.00); RDW-CV 13.3 % (10.5-14.5); WBC 5.8 thou/uL (4.0-11.0)
[2020-02-05 10:22] LABS: APTT 26.2 Seconds (25.0-31.3); INR 1.2; PROTIME 12.6 Seconds (9.20-11.50)
[2020-02-05 10:33] LABS: ANION GAP 7 mmol/L (7-16); BUN 20 mg/dL (7-18); CHLORIDE 104 mmol/L (98-107); CO2 29 mmol/L (21-32); CREATININE 1.4 mg/dL (0.6-1.3); GLUCOSE 236 mg/dL (70-99); POTASSIUM 4.6 mmol/L (3.5-5.1); SODIUM 140 mmol/L (136-145)
[2020-02-05 10:37] LABS: ALBUMIN 3.8 g/dL (3.4-5.0); ALKALINE PHOSPHATASE 109 U/L (46-116); CHOLESTEROL 137 mg/dL (<200); HDL CHOLESTEROL 47 mg/dL (>40); LDL CHOLESTEROL 59 mg/dL (<100); SERUM ASSESSMENT Clear; SGOT 17 U/L (15-37); SGPT 24 U/L (30-65); TC:HDL 2.9 Ratio (Not establshd); TOTAL BILIRUBIN 0.7 mg/dL (<0.1-1.0); TOTAL PROTEIN 7.1 g/dL (6.4-8.2); TRIGLYCERIDE 157 mg/dL (<150); VLDL 31 mg/dL (<40)
[2020-02-06] VITALS: BP 180/73
[2020-02-06 04:00] VITALS: BP 174/68
[2020-02-06 06:16] LABS: HEMATOCRIT 40.4 % (42.0-52.0); MCH 31.4 pg (26.0-34.0); MCHC 34.7 g/dL (28.0-37.0); MCV 90.3 fL (80.0-100.0); MPV 9.4 fl. (7.2-11.1); RBC 4.47 mil/uL (4.50-6.00); RDW-CV 13.2 % (10.5-14.5)
[2020-02-06 06:33] LABS: ALBUMIN 3.3 g/dL (3.4-5.0); CALCIUM 8.9 mg/dL (8.5-10.1); CREATININE 1.3 mg/dL (0.6-1.3); POTASSIUM 4.1 mmol/L (3.5-5.1); TOTAL BILIRUBIN 0.8 mg/dL (<0.1-1.0); TOTAL PROTEIN 6.5 g/dL (6.4-8.2); TROPONIN-I LEVEL 0.36 ng/mL (<0.06)
[2020-02-06 08:00] VITALS: BP 169/67
[2020-02-06 09:00] VITALS: BP 174/68
[2020-02-06 11:31] VITALS: BP 174/68
--- NOTE | 2020-02-06 12:19 | CARD ---
[address] [address] CARDIAC CATH REPORT Name: WILLIAMS LEVINE EVIE Room: [address] Fiordaliza M.RDonaldo#: [id number] Admission: 02/05/20 Attend Phys: Brayan Almazan MD, Discharge: Date of : 45 Report #: [id number] THIS REPORT FOR: //name// cc: COURTNEY Waldron No family physician/PCP COURTNEY - No family physician/PCP ~ APPROVED REPORT Study performed: 02/05/2020 13:26:19 Patient Details Patient Status: Out-Patient Room #: The patient is a 74 year-old male Event Personnel Evangelista Khan RTR Monitor, Dayna Gonzales RN, Sal Curtis Holkins, John Garment Sewer Hand Procedures Performed Left Heart Cath w/or w/o Coronaries [id number] [facility] [address] Place w/wo Plasty Addl BR DIAG [address] w/wo Plasty Addl BR OM [address] w/wo Plasty Single LAD [id number] Hemostasis w/ Angioseal Indication Unstable angina Risk Factors Obesity, Hypercholesterolemia, Hypertension, Diabetes Previous Procedures/Diagnoses Previous PCI, Previous NC Admission/Lab Medications/Medications given during procedure Lidocaine Subcut 20 ml, Fentanyl IV 25 mcg, Midazolam (Versed) IV 1 mg, Angiomax IV 16 ml, Angiomax IV 37 ml per hr, Aspirin PO 162 mg, Effient PO 60 mg Procedure Narrative The patient was brought electively to the Cardiac Catheterization Laboratory and was prepped and draped in a sterile manner. The right femoral was infiltrated with 2% Lidocaine subcutaneous anesthesia. A [place] 6 FR sheath was inserted into the right femoral artery. Coronary angiography was performed using coronary diagnostic catheters. The left coronary system was accessed [place] [address] CARDIAC CATH REPORT Name: WILLIAMS LEVINE EVIE Room: [address] M..#: [id number] Admission: 02/05/20 Attend Phys: Brayan Almazan MD, Discharge: Date of : 45 Report #: [id number] a Diagnostic JL4 6Fr catheter. The left ventricle was accessed and visualized with a Diagnostic Pigtail Straight 6Fr catheter. Closure device was deployed with a 6 Fr Angioseal. The patient tolerated the procedure well and there were no complications associated with the procedure. There was no hematoma. Intraoperative Conscious Sedation Sedation start time: 1403 Case end Time: 1510 Fentanyl 50 mcg Versed 2 mg Fluoro Time: 18.2 minutes Dose: DAP 831446 cGycm2 2677.05 mGy Contrast Type and Amount: Visipaque 380 ml IVUS Intravascular Ultrasound was performed on the Proximal LAD vessel. Fractional Flow [place] was performed on the 75 vessel. A 3 Guide Catheter was used to engage the ostium. Hemodynamics The aortic pressure is 214/60 mmHg with a mean of 99 mmHg. The left ventricular pressure is 212/12 mmHg with a mean of mmHg. The left ventricular end diastolic pressure is 35 mmHg. PCI Technique Lesion Anticoagulation was achieved with Angiomax. Percutaneous coronary intervention was performed on the mid left anterior descending artery segment. The lesion stenosis prior to intervention was 75% with STEFAN 3 flow. A 6FR XB 3.5 100CM Guide Catheter was used to engage the Left ostium. A IG: BMW 190cm Interventional Guidewire was used to cross the lesion. BALLOON DILATION A Balloon catheter Euphora SC 3.0x12 was inserted and inflated up to 12.00atm for 12seconds. Additional Inflation: 14.00atm for 10seconds. STENT DEPLOYMENT A drug-eluting stent [place] RX Stent 2.5X12mm was inserted and inflated up to 12.00atm for 8seconds. Additional Inflation: 16.00atm for 5seconds. Additional Inflation: 20.00atm for 7seconds. POST STENT DEPLOYMENT BALLOON DILATION A Balloon catheter NC Trek RX 2.75 X 8 was inserted and inflated up to 16.00atm for 7seconds. Additional Inflation: 16.00[place]m [place] [address] CARDIAC CATH REPORT Name: LEVINEWILLIAMS EVIE Room: [address] Fiordaliza Gaines#: [id number] Admission: 02/05/20 Attend Phys: Brayan Almazan MD, Discharge: Date of : 45 Report #: [id number] 6seconds. Final angiography reveals 10 % stenosis with STEFAN 3 flow. PCI Technique Lesion Percutaneous coronary intervention was performed on the Proximal LAD. The lesion stenosis prior to intervention was 75% with SETFAN 3 flow. STENT DEPLOYMENT A drug-eluting stent Jesús RX Stent 3.0X12mm was inserted and inflated up to 14.00atm for 6seconds. Additional Inflation: 16.00atm for 6seconds. Additional Inflation: 17.00atm for 7seconds. Final angiography reveals 10 % stenosis with STEFAN 3 flow. PCI Technique Lesion 2 Percutaneous Coronary Intervention was performed on the first diagnonal branch segment. The lesion stenosis prior to intervention was 90% with STEFAN 3 flow. A 6FR XB 3.5 100CM Guide Catheter was used to engage the Left ostium. A IG: ProwaterFlex 180CM Interventional Guidewire was used to cross the lesion. Balloon Dilation A Balloon catheter Euphora SC 2.0x10mm was inserted and inflated up to 8.00atm for 10seconds. Additional Inflation: 8.00atm for 10seconds. Stent Deployment A drug-eluting stent Jesús RX Stent 2.0X15mm was inserted and inflated up to 8.00atm for 9seconds. Additional Inflation: 10.00atm for 8seconds. Additional Inflation: 12.00atm for 7seconds. Final angiography reveals 10 % stenosis with STEFAN 3 flow. PCI Technique Lesion 3 Percutaneous Coronary Intervention was performed on the first obtuse marginal branch segment. The lesion stenosis prior to intervention was 90% with STEFAN 3 flow. A 6FR XB 3.5 100CM Guide Catheter was used to engage the Left ostium. A IG: BMW 190cm Interventional Guidewire was used to cross the lesion. Stent Deployment A drug-eluting stent Jesús RX Stent 2.0X12mm was inserted and inflated up to 10.00atm for 10seconds. Additional Inflation: 12.00atm for 9seconds. Additional Inflation: 14.00atm for 13seconds. [address] [place] [address] CARDIAC CATH REPORT Name: WILLIAMS LEVINE Room: [address]#: [id number] Admission: 02/05/20 Attend Phys: Brayan Almazan MD, Discharge: Date of : 45 Report #: [id number] Post Stent Deployment Balloon Dilation A Balloon catheter NC Trek RX 2.0 X 8 was inserted and inflated up to 14.00atm for 9seconds. Additional Inflation: 16.00atm for 9seconds. Additional Inflation: 18.00atm for 8seconds. Final angiography reveals 0 % stenosis with STEFAN 3 flow. Conclusion 1. Significant multivessel coronary artery disease characterized by the following: A 80% proximal and 75% mid LAD stenosis B widely patent stent in the posterior division of the circumflex with 90% tubular first marginal stenosis C total occlusion of the right coronary proximally as previously defined with prominent left to right collaterals filling the distal right coronary system 2. Severe elevation of left ventricular end-diastolic pressure at rest with significant systemic systolic hypertension 3. Successful PCI with deployment of sequential drug-eluting stents at the sites of 80% proximal and 75% mid LAD stenosis with 10% residual narrowing at both sites and STEFAN-3 flow to the distal vessel 4. Successful PCI with deployment of drug-eluting stent at site of 90% first diagonal stenosis with 10% residual narrowing and STEFAN-3 flow to the distal vessel 5. Successful PCI with deployment of a drug-eluting stent at site of 90% first marginal stenosis with 0% residual narrowing and STEFAN-3 flow to the distal vessel Recommendations Cardiac Risk Reduction Program Aggressive Medical Therapy Medications Administered Aspirin (any) [place] [address] CARDIAC CATH REPORT Name: WILLIAMS LEVINE Room: [address] Fiordaliza MDonaldoRDonaldo#: [id number] Admission: 02/05/20 Attend Phys: Brayan Almazan MD, Discharge: Date of : 45 Report #: [id number] Diagnostic Cath Approved by: Brayan Almazan MD Date/Time: 02/06/2020 12:15:01 <ELECTRONICALLY SIGNED> By: Brayan Almazan MD, FACC 02/06/20 1219 1219 1219Brayan Almazan MD, FACC /INF
--- NOTE | 2020-02-06 17:18 | EKG ---
[place] [address] ELECTROCARDIOGRAM REPORT Name: WILLIAMS LEVINE Room: [address] M.R.#: [id number] Admission: 02/05/20 Attend Phys: Monserrat Venegas Discharge: 02/06/20 Date of : 45 Date of Service: 02/06/20818 Report #: [id number] THIS REPORT FOR: //name// [facility] Test Date: 2020-02-06 Test Time: 08:19:17 Pat Name: WILLIAMS JULIANNA Department: Room: [facility] Gender: M Union Steward: XENIA : 1945 Requested By: Brayan Almazan Order Number: [id number] Reading MD: Brayan Almazan Measurements Intervals [place] Rate: 57 P: 76 [place]: 164 QRS: -68 QRSD: 165 T: -1 QT: 472 QTc: 460 Interpretive Statements Sinus rhythm Ventricular premature complex Right bundle branch block possible inferior scar Compared to ECG 02/05/2020 16:54:52 Ventricular premature complex(es) now present Electronically Signed On 02-06-2020 17:17:57 CDT by Brayan Almazan [email or web address] <ELECTRONICALLY SIGNED> By: Brayan Almazan MD, [facility] 02/06/20 1717 8 8 Brayan Almazan MD, [facility] /EPI
--- NOTE | 2020-02-06 17:24 | EKG ---
[place] [address] ELECTROCARDIOGRAM REPORT Name: WILLIAMS LEVINE Room: [address] M.R.#: [id number] Admission: 02/05/20 Attend Phys: Monserrat Venegas Discharge: 02/06/20 Date of : 45 Date of Service: 02/05/20 1654 Report #: [id number] THIS REPORT FOR: //name// [facility] Test Date: 2020-02-05 Test Time: 16:54:52 Pat Name: WILLIAMS DAVISKINS Department: Room: [facility] Gender: M Oven Dumper: MCAMPBELL1 : 1945 Requested By: Brayan Almazan Order Number: [id number] Emeka MD: Brayan Almazan Measurements Intervals [place] Rate: 53 P: 66 [place]: 188 QRS: -64 QRSD: 166 T: -11 QT: 487 QTc: 458 Interpretive Statements Sinus rhythm Right bundle branch block possible inferior scar Compared to ECG 02/05/2020 10:51:10 Atrial premature complex(es) no longer present Myocardial infarct finding persists Electronically Signed On 02-06-2020 17:24:15 CDT by Brayan Almazan [email or web address] <ELECTRONICALLY SIGNED> By: Brayan Almazan MD, FAC 02/06/20 1724 1654 1654 Brayan Almazan MD, FAC /EPI
--- NOTE | 2020-02-06 17:31 | EKG ---
[place] [address] ELECTROCARDIOGRAM REPORT Name: WILLIAMS LEVINE Room: [address] M.R.#: [id number] Admission: 02/05/20 Attend Phys: Monserrat Venegas Discharge: 02/06/20 Date of : 45 Date of Service: 02/05/20 1051 Report #: [id number] THIS REPORT FOR: //name// [facility] Test Date: 2020-02-05 Test Time: 10:51:10 Pat Name: WILLIAMS LEVINE Department: Room: [facility] Gender: M Setup Operator: XENIA : 1945 Requested By: Brayan Almazan Order Number: [id number] Emeka MD: Brayan Almazan Measurements Intervals [place] Rate: 61 P: 40 [place]: 174 QRS: -68 QRSD: 161 T: -4 QT: 456 QTc: 460 Interpretive Statements Sinus rhythm Atrial premature complex Right bundle branch block Inferior infarct, old Compared to ECG 01/15/2020 10:34:37 No significant changes Electronically Signed On 02-06-2020 17:31:32 CDT by Brayan Almazan [email or web address] <ELECTRONICALLY SIGNED> By: Brayan Almazan MD, [facility] 02/06/20 1731 1051 1051 Brayan Almazan MD, [facility] /EPI
--- NOTE | 2020-02-07 10:33 | D ---
[address] [address] DISCHARGE SUMMARY Name: JULIANNAWILLIAMS EVIE Room: [address] Fiordaliza Gaines#: [id number] Admission: 02/05/20 Attend Phys: Brayan Almazan MD, Discharge: 02/06/20 Date of : 45 Report #: [id number] THIS REPORT FOR: //name// cc: COURTNEY - Denise family physician/PCP COURTNEY - No family physician/PCP ~ THIS REPORT FOR: //name// CC: COURTNEY physician/PCP Brayan Almazan DATE OF SERVICE: 02/06/2020 FINAL DISCHARGE DIAGNOSES: 1. Recurrent angina. 2. Status post recent ST segment elevation myocardial infarction. 3. Coronary artery disease. 4. Hypertension. 5. Diabetes. 6. Hyperlipoproteinemia. 7. Obesity. PROCEDURES: 02/05/2020 -- left heart catheterization, left ventriculography, selective coronary arteriography and percutaneous coronary intervention with deployment of drug-eluting stents in the LAD, first diagonal and first marginal branch of the circumflex. The patient is a very pleasant 74-year-old male with complex coronary artery disease, status post recent inferoposterior infarction interrupted by stenting of the circumflex. He had complex disease of the LAD, diagonal and first marginal, which were not approached in the acute setting. Since discharge, he has noted some episodes of angina, but nothing as severe as his prior episode associated with acute myocardial infarction. He has underlying hypertension, diabetes and hyperlipidemia. In that context, I performed recatheterization on 02/05/2020, which revealed widely patent recently deployed posterior division circumflex stents. He had a high-grade proximal mid LAD, first diagonal and first marginal stenosis. I deployed 2 drug-eluting stents in the LAD, one in the first diagonal and one in the first marginal branch of the circumflex. Troponin chrissy minimally to 0.36. He had no chest pain post procedurally. He ambulated in the hallways without difficulty and there was good hemostasis at the right femoral site of catheterization. DISCHARGE MEDICATIONS: The patient was discharged to home on 02/06/2020 [place] [address] DISCHARGE SUMMARY Name: WILLIAMS LEVINE Room: [address]#: [id number] Admission: 02/05/20 Attend Phys: Brayan Almazan MD, Discharge: 02/06/20 Date of : 45 Report #: [id number] following medications: Aspirin 81 mg daily; Humalog insulin subcutaneously q.i.d. sliding scale as utilized at home; lisinopril 2.5 mg daily; metoprolol succinate 25 mg daily; and prasugrel 10 mg daily, he was given a 60 mg ashlie-procedural dose; he is also rosuvastatin 20 mg daily. The patient is scheduled to return to see my nurse practitioner, Mercedes Lan, on 02/19/2020 at 1100 hours and myself on 04/11/2020 at 1000 hours. Therefore, the patient is discharged to home in stable condition on the aforementioned medications with followup as iterated above. <ELECTRONICALLY SIGNED> By: Brayan Almazan MD, FACC 02/07/20 1033 0957 [email or web address] Almazan MD, [facility] /nt
== END 2020-02-06 12:15 | disposition home or self-care (01) ==
LOC: M.CL 08:51 → M.TBA-CV 15:27 → M.2W 16:00
PROVIDERS: ADMIT Internal Medicine; ATTEND Internal Medicine
DX: I25.118 Atherosclerotic heart disease of native coronary artery with other forms of angina pectoris (principal); I10 Essential (primary) hypertension; E11.9 Type 2 diabetes mellitus without complications; E66.9 Obesity, unspecified; E78.00 Pure hypercholesterolemia, unspecified; I21.9 Acute myocardial infarction, unspecified; Z68.35 Body mass index [BMI] 35.0-35.9, adult; Z79.4 Long term (current) use of insulin; Z79.82 Long term (current) use of aspirin; Z79.899 Other long term (current) drug therapy